=== PATIENT | male | born 1985 | race Two or more races ===

== ENCOUNTER 2019-10-12 15:37 | Emergency (ER) | payer SELFPAY ==
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
--- NOTE | 2019-10-12 18:12 | CR ---
INDICATION: PAIN, TWISTED ANKLE LAST NIGHT TECHNIQUE: Left ankle 3 views. COMPARISON: None. FINDINGS: Bones: Alignment is normal. No fractures or bone lesions. Joint spaces: Unremarkable. Soft tissues: Unremarkable. IMPRESSION: Unremarkable left ankle. Dictated by: Bobo Hernandez MD @ 10/12/2019 18:11:33 (Electronically Signed)
== END 2019-10-12 18:09 | disposition home or self-care (01) ==
LOC: MW.ED 15:37
DX: S93.402A Sprain of unspecified ligament of left ankle, initial encounter (principal); S96.912A Strain of unspecified muscle and tendon at ankle and foot level, left foot, initial encounter; F17.210 Nicotine dependence, cigarettes, uncomplicated; X50.1XXA Overexertion from prolonged static or awkward postures, initial encounter; W01.0XXA Fall on same level from slipping, tripping and stumbling without subsequent striking against object, initial encounter; Y93.89 Activity, other specified; Y92.89 Other specified places as the place of occurrence of the external cause
CPT/HCPCS: 73610-26-LT; 73610-LT; 99282; 99283-25